=== PATIENT | male | born 1995 | race Caucasian/White ===

== ENCOUNTER → 2016-11-30 | Outpatient (CLI) | payer OTHER ==
[2016-12-01 01:12] LABS: HCV ANTIBODY <0.1 s/co ratio (0.0-0.9); HEP B SURFACE ABDY Non Reactive (.)
== END | disposition home or self-care (01) ==
LOC: LAB 15:41
PROVIDERS: ATTEND Dentist Oral and Maxillofacial Surgery
DX: Z20.9 Contact with and (suspected) exposure to unspecified communicable disease (principal)
CPT/HCPCS: 36415; 86701; 86702; 86703; 86706; 86803; 87535